=== PATIENT | female | born 1960 | race African-American/Black ===

== ENCOUNTER 2018-11-25 16:55 | Inpatient (IN) | payer MEDICAID ==
[~2018-11-25] VITALS: Ht 167.6 cm; Wt 87.1 kg
[~2018-11-25 16:55] MED LIST: BUPR150T9 PO; HYDR50CA5 PO; LITHTAB PO; PARO-41 PO
[2018-11-25] MEDS ORDERED: NITROGLYCERIN OINT 1GM/INCH UDPKT TD ONE (17:45)
[2018-11-25] MEDS ORDERED: ASPIRIN 81MG TABLET PO ONE (17:45)
[2018-11-25 18:37] LABS: CLARITY URINE CLEAR (CLEAR); COLOR URINE YELLOW (YELLOW); KETONES URINE NEGATIVE (NEGATIVE); LEUKOCYTE ESTERASE URINE NEGATIVE (NEGATIVE); NITRITE URINE NEGATIVE (NEGATIVE); OCCULT BLOOD URINE NEGATIVE (NEGATIVE); PROTEIN URINE NEGATIVE (NEGATIVE); SPECIFIC GRAVITY URINE 1.004 (1.005-1.030); UROBILINOGEN URINE 0.2 E.U./dL (0.2-1.0)
[2018-11-25 19:03] LABS: BASOPHILS % 0.6 % (0.0-2.0); CHLORIDE 110 mEq/L (98-107); EOSINOPHILS % 1.2 % (0.0-5.0); HEMATOCRIT. 41.4 % (36.0-48.0); HEMOGLOBIN. 13.6 g/dL (12.0-16.0); MEAN CORPUSCULAR HEMOGLOBIN 26.6 pg (28.0-32.0); MEAN PLATELET VOLUME 8.6 fl (7.4-10.4); MONOCYTES % 6.4 % (2.0-8.0); NEUTROPHILS % 56.8 % (40.0-76.0); PLATELET 255 x1000/uL (130-400); RED BLOOD CELL COUNT 5.11 mill/uL (4.2-5.4); RED CELL DISTRIBUTION WIDTH 16.4 % (11.6-14.6)
[2018-11-25 19:08] LABS: ETHANOL BLOOD < 10 mg/dL
[2018-11-25 19:29] LABS: D-DIMER < 0.19 mg/L FEU (<0.50); PROTHROMBIN TIME 10.6 sec (9.6-11.0)
[2018-11-25] MEDS ORDERED: MORPHINE SULFATE 2 MG/ML CPJ (NOT FOR IM USE) IV PRN (21:15)
[2018-11-25] MEDS ORDERED: HYDRALAZINE 20MG/ML VIAL IV PRN (21:15)
[2018-11-25] MEDS ORDERED: ONDANSETRON HCL 4MG/2ML INJ IV PRN (21:15)
[2018-11-25] MEDS ORDERED: ALPRAZOLAM 0.5 MG TABLET PO PRN (21:15)
[2018-11-25] MEDS ORDERED: CLONIDINE 0.1MG TABLET PO ONE (21:15)
[2018-11-25] MEDS ORDERED: ZOLPIDEM TARTRATE 5MG TABLET PO PRN (22:44)
[2018-11-25] MEDS ORDERED: GABA-531 PO (23:13)
[2018-11-25 23:33] VITALS: BP 133/64
[2018-11-25] MEDS: LOSARTAN POTASSIUM 50 MG TABLET PO SCH (23:48)
[2018-11-26] VITALS: BP 120/63
[2018-11-26 04:00] VITALS: BP 106/67
[2018-11-26] MEDS: ACETAMINOPHEN 325MG TABLET PO PRN ×3 (04:24→19:01)
[2018-11-26 08:00] VITALS: BP 124/66
[2018-11-26 08:57] LABS: BASOPHILS % 0.5 % (0.0-2.0); EOSINOPHILS % 2.1 % (0.0-5.0); HEMATOCRIT. 37.4 % (36.0-48.0); HEMOGLOBIN. 11.9 g/dL (12.0-16.0); LYMPHOCYTES % 36.8 % (20.0-50.0); MEAN CORPUSCULAR HEMOGLOBIN 25.8 pg (28.0-32.0); MEAN CORPUSCULAR VOLUME 80.7 fL (81.0-99.0); MEAN PLATELET VOLUME 8.4 fl (7.4-10.4); MONOCYTES % 10.3 % (2.0-8.0); NEUTROPHILS % 50.3 % (40.0-76.0); PLATELET 234 x1000/uL (130-400); RED BLOOD CELL COUNT 4.63 mill/uL (4.2-5.4); RED CELL DISTRIBUTION WIDTH 16.4 % (11.6-14.6)
[2018-11-26 09:25] LABS: CHLORIDE 110 mEq/L (98-107)
[2018-11-26] MEDS: ASPIRIN 81MG TABLET PO SCH (09:32)
[2018-11-26] MEDS: AMLODIPINE 5MG TABLET PO SCH ×2 (09:32→21:20)
[2018-11-26] MEDS: LOSARTAN POTASSIUM 50 MG TABLET PO SCH (09:32)
[2018-11-26] MEDS ORDERED: DIPHENHYDRAMINE 50MG/ML VIAL IV SCH (11:00)
[2018-11-26] MEDS ORDERED: REGADENOSON 0.4 MG/5 ML IV ONE ×2 (11:15→13:58)
[2018-11-26 12:00] VITALS: BP 172/82
[2018-11-26] MEDS ORDERED: SUMATRIPTAN SUCCINATE 6MG/0.5ML VIAL SUBCUT SCH (12:00)
[2018-11-26 16:00] VITALS: BP 131/72
[2018-11-26 20:00] VITALS: BP 140/71
[2018-11-27] VITALS: BP 115/63
[2018-11-27 04:00] VITALS: BP 127/68
[2018-11-27] MEDS: ACETAMINOPHEN 325MG TABLET PO PRN (04:48)
[2018-11-27 08:00] VITALS: BP 119/61
[2018-11-27] MEDS: LOSARTAN POTASSIUM 50 MG TABLET PO SCH (09:26)
[2018-11-27] MEDS: AMLODIPINE 5MG TABLET PO SCH (09:27)
[2018-11-27] MEDS: ASPIRIN 81MG TABLET PO SCH (09:27)
[2018-11-27 12:00] VITALS: BP 127/64
[2018-11-27 13:10] VITALS: BP 127/64
== END 2018-11-27 15:30 | disposition home or self-care (01) | DRG 756 ==
LOC: ER 19:00 → EDBEDREQ 19:54 → EDBEDREQTM 19:54 → ENRESERV 20:37 → 5WST 23:08
PROVIDERS: ADMIT Internal Medicine; ATTEND Internal Medicine
DX: F41.9 Anxiety disorder, unspecified (principal); E87.8 Other disorders of electrolyte and fluid balance, not elsewhere classified; R07.9 Chest pain, unspecified; E87.6 Hypokalemia; E11.9 Type 2 diabetes mellitus without complications; E78.5 Hyperlipidemia, unspecified; G43.909 Migraine, unspecified, not intractable, without status migrainosus; I10 Essential (primary) hypertension; E66.9 Obesity, unspecified; F31.9 Bipolar disorder, unspecified; Z86.73 Personal history of transient ischemic attack (TIA), and cerebral infarction without residual deficits; Z95.1 Presence of aortocoronary bypass graft; Z68.31 Body mass index [BMI] 31.0-31.9, adult
CPT/HCPCS: 36415; 71045; 78452; 80048; 80061; 80320; 83036; 83880; 84443; 84484; 85379; 93005; 93017; 93306; 93970; 99285; A9500; J1200; J2785; J3030; G0480